=== PATIENT | female | born 1990 | race Caucasian/White ===

== ENCOUNTER 2016-08-12 17:08 | Emergency (ER) | payer SELFPAY ==
[2016-08-12] MEDS ORDERED: HYDROCODONE/ACETAMINOPHEN 5/325MG TABLET ONE (19:30)
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
== END 2016-08-12 20:27 | disposition home or self-care (01) ==
LOC: ED 17:08
DX: S09.93XA Unspecified injury of face, initial encounter (principal); S16.1XXA Strain of muscle, fascia and tendon at neck level, initial encounter; M25.511 Pain in right shoulder; W17.81XA Fall down embankment (hill), initial encounter; Y93.55 Activity, bike riding; Y92.480 Sidewalk as the place of occurrence of the external cause